=== PATIENT | male | born 1985 | race Caucasian/White ===

== ENCOUNTER 2019-03-28 22:36 | Emergency (ER) | payer MEDICAID ==
[~2019-03-28] VITALS: Ht 185.4 cm; Wt 79.4 kg
[2019-03-28 22:47] VITALS: BP_SYST 148
[2019-03-29] MEDS ORDERED: MORPHINE 4 MG/ML INJ. SYRINGE IM ONE (02:30)
[2019-03-29 03:05] LABS: BASOPHILS % (AUTO) 0.6 % (0.0-2.0); EOSINOPHILS # (AUTO) 0.2 K/uL (0.0-0.4); EOSINOPHILS % (AUTO) 3.4 % (0.0-4.0); HEMATOCRIT 42.3 % (36-54); HEMOGLOBIN 14.4 g/dL (14.0-18.0); LYMPHOCYTES # (AUTO) 3.2 K/uL (1.0-5.5); LYMPHOCYTES % (AUTO) 44.9 % (20.5-51.5); MEAN CORPUSCULAR HEMOGLOBIN 32 pg (27-31); MEAN CORPUSCULAR HGB CONC 34 % (32-36); MEAN CORPUSCULAR VOLUME 94 fL (79.0-98.0); MONOCYTES # (AUTO) 0.4 K/uL (0.0-1.0); NEUTROPHILS # (AUTO) 3.3 K/uL (1.8-7.7); NEUTROPHILS % (AUTO) 45.1 % (40.0-70.0); PLATELET COUNT (AUTO) 145 K/uL (130-430); RED CELL DISTRIBUTION WIDTH 12.8 % (9.0-15.0); WHITE BLOOD COUNT (AUTO) 7.2 K/uL (4.8-10.8)
[2019-03-29 03:13] LABS: INR 0.9 (0.80-1.20); PROTHROMBIN TIME 9.3 SECS (9.5-12.5)
[2019-03-29] MEDS ORDERED: METHOCARBAMOL 500 MG TABLET PO ONE (05:30)
[2019-03-29 06:35] VITALS: BP_SYST 128
== END 2019-03-29 06:35 | disposition home or self-care (01) ==
LOC: SED 22:36
DX: S23.3XXA Sprain of ligaments of thoracic spine, initial encounter (principal); V83.9XXA Unspecified occupant of special industrial vehicle injured in nontraffic accident, initial encounter; Y93.89 Activity, other specified; Y92.89 Other specified places as the place of occurrence of the external cause; Y99.8 Other external cause status
CPT/HCPCS: 36415; 71250; 73610; 74176; 81002; 85025; 85610; 96372; 99284; J2270

== ENCOUNTER 2019-08-11 22:39 | Emergency (ER) | payer MEDICAID ==
[~2019-08-11] VITALS: Ht 185.4 cm; Wt 81.6 kg
[2019-08-11 22:40] VITALS: BP_SYST 152
[2019-08-11 23:51] VITALS: BP_SYST 152
== END 2019-08-11 23:52 | disposition home or self-care (01) ==
LOC: SED 22:39
DX: H60.331 Swimmer's ear, right ear (principal); J30.9 Allergic rhinitis, unspecified
CPT/HCPCS: 99283

== ENCOUNTER 2020-03-15 14:49 | Emergency (ER) | payer MEDICAID ==
[~2020-03-15] VITALS: Ht 185.4 cm; Wt 78.0 kg
--- NOTE | 2020-03-15 14:50 | NUR ---
Patient to ER bed 07 to gown for evaluation. Side rails up.
--- NOTE | 2020-03-15 14:52 | NUR ---
Pt brought by self, A&Ox4, pt presents to ER with redness , pain and discharge on Left upper arm, pt states he had a tattoo recently and noticed a pimple at the site, pt afebrile, cap refill <3.
[2020-03-15 14:55] VITALS: BP_SYST 144
--- NOTE | 2020-03-15 15:15 | NUR ---
ER Dr. CHRISTIAN at bedside examining patient.
--- NOTE | 2020-03-15 15:25 | NUR ---
Patient given written and verbal discharge instructions and verbalizes understanding. DR. GINO ALAFRO MD discussed with patient the results and treatment provided. Patient in stable condition. ID arm band removed. Rx of given. Patient educated on pain management and to follow up with PMD. Pain Scale 1/10. Opportunity for questions provided and answered. Medication side effect fact sheet provided.
== END 2020-03-15 15:25 | disposition home or self-care (01) ==
LOC: SED 14:49
DX: L03.114 Cellulitis of left upper limb (principal)
CPT/HCPCS: 99283